=== PATIENT | female | born 1955 | race Two or more races ===

== ENCOUNTER 2022-05-30 14:47 | Inpatient (IN) | payer OTHER ==
[~2022-05-30] VITALS: Ht 172.7 cm; Wt 58.1 kg
[2022-05-30] MEDS ORDERED: TOPAMAX25 MG (15:03)
[2022-05-30] MEDS ORDERED: NEURONTIN800 MG PO (15:03)
[2022-05-30] MEDS ORDERED: CARAFATE1 GM (15:04)
[2022-05-30] MEDS ORDERED: DEPAKOTE ER500 MG PO (15:04)
[2022-05-30] MEDS ORDERED: XANAX0.25 MG PO (15:04)
[2022-06-01] MEDS ORDERED: EMGALITY P120 MG/1 M (09:48)
[2022-06-01] MEDS ORDERED: LOW DOSE ASPIRI81 M1 (09:48)
[2022-06-01] MEDS ORDERED: FLONASE16 GM (09:48)
[2022-06-01] MEDS ORDERED: SIMVASTATIN20 MG (09:48)
[2022-06-10] MEDS ORDERED: INTESTINEX680 M1 PO (09:36)
[2022-06-10] MEDS ORDERED: HYOSCYAMINE0.125 M1 SL (09:36)
== END 2022-06-10 13:54 | disposition home or self-care (01) | DRG 337 ==
LOC: ER 14:47 → SURG 17:14 → SURH 17:14
PROVIDERS: ADMIT Surgery; ATTEND Surgery
PROC: BW21YZZ Computerized Tomography (CT Scan) of Abdomen and Pelvis using Other Contrast (ICD-10-PCS; 2022-05-30)
PROC: 02HV33Z Insertion of Infusion Device into Superior Vena Cava, Percutaneous Approach (ICD-10-PCS; 2022-06-01)
PROC: 0DNU4ZZ Release Omentum, Percutaneous Endoscopic Approach (ICD-10-PCS; 2022-06-05)
PROC: 0DN84ZZ Release Small Intestine, Percutaneous Endoscopic Approach (ICD-10-PCS; principal; 2022-06-05 07:00)
DX: K63.89 Other specified diseases of intestine (principal); K56.50 Intestinal adhesions [bands], unspecified as to partial versus complete obstruction; K59.09 Other constipation; K29.40 Chronic atrophic gastritis without bleeding; Z86.39 Personal history of other endocrine, nutritional and metabolic disease; M79.7 Fibromyalgia; G40.909 Epilepsy, unspecified, not intractable, without status epilepticus; Z98.0 Intestinal bypass and anastomosis status